=== PATIENT | female | born 1970 | race Two or more races ===

== ENCOUNTER 2021-12-29 09:11 | Emergency (ER) | payer SELFPAY ==
--- NOTE | ~2021-12-29 | XR_ITS ---
EXAMINATION: XR CHEST CLINICAL INFORMATION: Shortness of breath. COMPARISON: None TECHNIQUE: 2 views of the chest were obtained. FINDINGS: No significant abnormality is noted involving the heart, lungs, mediastinum, bony thorax or soft tissues. XR/XR chest 2V IMPRESSION: Unremarkable examination.
[2021-12-29 09:16] VITALS: BP 110/75; PULSE 100; RESP 19; TEMP 36.6; O2SAT 98; BMI 28.2
--- NOTE | 2021-12-29 09:22 | ECG_ITS ---
Test Reason : shortness of breath Blood Pressure : / mmHG Vent. Rate : 095 BPM Atrial Rate : 095 BPM P-R Int : 142 ms QRS Dur : 072 ms QT Int : 352 ms P-R-T Axes : 067 002 004 degrees QTc Int : 442 ms Normal sinus rhythm Nonspecific T wave abnormality Abnormal ECG No previous ECGs available Referred By: Generic ED Physician Electronically Signed By:LUIGI LANCASTER MD
[2021-12-29 10:12] VITALS: BP 119/64; PULSE 78; RESP 18; TEMP 37; O2SAT 100
--- NOTE | 2021-12-29 10:13 | ED_ITS ---
HPI - SOB/Dyspnea General Chief Complaint: General Medical Stated Complaint: difficulty breathing Time Seen by Provider: 12/29/21 10:11 Source: patient and family Mode of arrival: ambulatory Limitations: no limitations History of Present Illness MD elicited complaint: shortness of breath Pertinent past history: asthma Onset (ago): day(s) (yesterday ) Context: other (came from [place] end of November has no albuterol INH) Timing: constant Severity: moderate Exacerbating factors: exertion and coughing Relieving factors: rest Known history of: asthma Associated symptoms: cough and other (chest tightness) Related Data Previous Rx's Medication Instructions Recorded prednisone 20 mg tablet 60 mg PO DAILY 5 Days #15 tab 12/29/21 Allergies Allergy/AdvReac Type Severity Reaction Status Date / Time Sulfa (Sulfonamide Allergy Unknown Unknown Verified 12/29/21 10:25 Antibiotics) tramadol Allergy Unknown Unknown Verified 12/29/21 10:25 Review of Systems Review of Systems: Constitutional : No Fever, No Chills ENT/Mouth : No Hoarseness, No sore throat, No Rhinorrhea Eyes: No Redness, No Discharge, No Vision Changes Cardiovascular : pos Chest Pain, positive SOB, positive Dyspnea on Exertion, No Edema Respiratory : positive Cough, No Sputum, positive Wheezing, Gastrointestinal : No Nausea, No Vomiting, No Diarrhea, No abdominal Pain Genitourinary : No Dysuria, No Hematuria Musculoskeletal : No joint pain, No Myalgias Skin : No rash Neuro : No Weakness, No Numbness, No Headache Psych : No anxiety, depression Heme/Lymph: No Bruising, No Bleeding Endocrine : No Polyuria, No Polydipsia All other systems reviewed and are negative [facility] Past Medical History Attestation statement: The following information was validated with the patient. Medical History (Updated 12/29/21 @ 13:30 by Marisela Henson DO) Asthma Social History Social History (Updated 12/29/21 @ 10:37 by Marisela Henson DO) Patient Tobacco Use Status: Former Tobacco user Use of substances other than those prescribed or required for medical reasons: No Advance Directives: No Advance Directives Information Provided: Yes Physical Exam Vital Signs: Vital Signs: Last Vital Signs Temp 98.6 F 12/29/21 10:12 Pulse 62 12/29/21 13:22 Resp 18 12/29/21 13:22 BP 119/64 12/29/21 10:12 Pulse Ox 100 12/29/21 10:12 BMI result Body Mass Index 28.2 Appearance: Alert. Oriented X3. No acute distress. Eyes: Pupils equal, round and reactive to light. ENT: Pharynx normal. Neck: Normal inspection. Neck supple. CVS: Normal heart rate and rhythm. Pulses normal. Respiratory: No respiratory distress. Breath sounds diminished Abdomen: Soft and nontender. Skin: Skin warm and dry. Normal skin color. Normal skin turgor. Extremities: No lower extremity edema. No calf ttp Neuro: Oriented X 3. No motor deficit. No sensory deficit. Course Course Course Narrative: ddimer under upper limits of normal negative troponin x 2, CXR negative, COVID negative feels better with neb given INH in hand will Rx prednisone and DC home MDM - SOB/Dyspnea MDM Narrative Medical decision making narrative: 51 yo female hx of asthma comes in with c/o dyspnea and chest tightness has no r escue inhalers did just travel end of november from [place] - at this time troponin, EKG, ddimer, albuterol neb, IV steroids and CXR - COVID swab. She has lateral t wave inversions but I have no prior EKGs to compare may need repeat troponin - seems more asthma exacerbation vs PE than ACS at this time. Lab Data Result diagrams: 12/29/21 10:49 12/29/21 10:49 Labs: Lab Results 12/29/21 12/29/21 12/29/21 Range/Units 10:49 10:49 10:49 WBC 6.0 (4.8-10.8) X10*3/uL RBC 4.38 (4.20-5.50) X10*6/uL Hgb 13.1 (12.0-16.0) g/dl Hct 39.1 (37.0-47.0) % MCV 89.3 (80.0-98.0) fL MCH 29.9 (27.0-33.0) pg MCHC 33.5 (31.0-35.0) g/dl RDW 12.9 (11.0-16.0) % Plt Count 238 (160-400) X10*3/uL MPV 10.8 (9.4-12.3) fL Immature Gran % (Auto) 0.2 (0.0-0.4) % Neut % (Auto) 60.0 (45-73) % Lymph % (Auto) 31.8 (20-40) % Hubbard % (Auto) 6.0 (2-11) % Eos % (Auto) 1.3 (0-4) % Baso % (Auto) 0.7 (0-2) % Lymph # (Auto) 1.9 (1.2-4.9) X10*3/uL Hubbard # (Auto) 0.4 (0.1-1.2) X10*3/uL Eos # (Auto) 0.1 (0.0-0.4) X10*3/uL Baso # (Auto) 0.0 (0.0-0.2) X10*3/uL Abs Immat Gran (auto) 0.01 (0.00-0.03) X10*3/uL Absolute Neuts (auto) 3.6 (2.0-8.3) x10*3/uL Absolute Nucleated RBC 0.000 (0.0-0.012) X10*3/uL Nucleated RBC % (auto) 0.0 (0.0-0.2) /100WBC D-Dimer High Sensitivty 207 NG/ML Sodium 143 (135-145) mmol/L Potassium 4.3 (3.3-5.1) mmol/L Chloride 110 H (96-108) mmol/L Carbon Dioxide 23 (22-29) mmol/L Anion Gap 14 (12-20) BUN 15 (9-16) mg/dL Creatinine 0.73 (0.5-1.4) mg/dL Estim Creat Clear Calc 81.7 Estimated GFR > 60 Random Glucose 96 (60-115) mg/dL Calcium 9.8 (8.4-10.2) mg/dL Troponin I High Sens (<3.5-17.0) ng/L B-Natriuretic Peptide (<100) pg/mL COVID-19 ([facility]) (Negative) COVID-19 Clin Com 12/29/21 12/29/21 12/29/21 Range/Units 10:49 10:49 12:53 WBC (4.8-10.8) X10*3/uL RBC (4.20-5.50) X10*6/uL Hgb (12.0-16.0) g/dl Hct (37.0-47.0) % MCV (80.0-98.0) fL MCH (27.0-33.0) pg MCHC (31.0-35.0) g/dl RDW (11.0-16.0) % Plt Count (160-400) X10*3/uL MPV (9.4-12.3) fL Immature Gran % (Auto) (0.0-0.4) % Neut % (Auto) (45-73) % Lymph % (Auto) (20-40) % Hubbard % (Auto) (2-11) % Eos % (Auto) (0-4) % Baso % (Auto) (0-2) % Lymph # (Auto) (1.2-4.9) X10*3/uL Hubbard # (Auto) (0.1-1.2) X10*3/uL Eos # (Auto) (0.0-0.4) X10*3/uL Baso # (Auto) (0.0-0.2) X10*3/uL Abs Immat Gran (auto) (0.00-0.03) X10*3/uL Absolute Neuts (auto) (2.0-8.3) x10*3/uL Absolute Nucleated RBC (0.0-0.012) X10*3/uL Nucleated RBC % (auto) (0.0-0.2) /100WBC D-Dimer High Sensitivty NG/ML Sodium (135-145) mmol/L Potassium (3.3-5.1) mmol/L Chloride (96-108) mmol/L Carbon Dioxide (22-29) mmol/L Anion Gap (12-20) BUN (9-16) mg/dL Creatinine (0.5-1.4) mg/dL Estim Creat Clear Calc Estimated GFR Random Glucose (60-115) mg/dL Calcium (8.4-10.2) mg/dL Troponin I High Sens < 3.5 < 3.5 (<3.5-17.0) ng/L B-Natriuretic Peptide < 10 (<100) pg/mL COVID-19 ([facility]) Negative (Negative) COVID-19 Clin Com See Note ECG Data Attestation: I personally reviewed and interpreted this ECG as follows: ECG interpretation date: 12/29/21 ECG interpretation time: 10:13 Interpretation: Rate:95 Rhythm: NSR [place]: left Normal P waves. Normal AIRAM. Normal QRS complex. ST T wave : no NEHA, inverted in V4-V6 qTC: normal prior studies: none The study has been interpreted contemporaneously by me. . Discharge Plan Discharge Clinical Impression: Nonspecific ST-T wave electrocardiographic changes Asthma Qualifiers: Asthma severity: mild Asthma persistence: persistent Asthma complication type: with acute exacerbation Qualified Code(s): J45.31 - Mild persistent asthma with (acute) exacerbation Patient Disposition: Home, Self-Care Instructions: Asthma (ED) Additional Instructions: return to ED for any worsening symptoms or concerns puede usar el inhalador 2 inhalaciones cada 2 a 4 horas seg?n sea necesario para la disnea Prescriptions: New prednisone 20 mg tablet 60 mg PO DAILY 5 Days Qty: 15 0RF Print Language: Icelandic
--- NOTE | 2021-12-29 10:52 | PC.NURSE ---
pt alert and oriented, skin appropriate for ethnicity, respirations even and unlabored, ls clear sating 100% on room air, pt also has a horse voice-reports loosing her voice few days ago, feeling sob and chest tightness ns on the monitor and vs stable
[2021-12-29 10:55] LABS: MANUAL DIFF FLAG NO
[2021-12-29 11:05] LABS: Basophils Percent Auto 0.7 % (0-2); Eosinophils Absolute Auto 0.1 X10*3/uL (0.0-0.4); Eosinophils Percent Auto 1.3 % (0-4); Hematocrit 39.1 % (37.0-47.0); Hemoglobin 13.1 g/dl (12.0-16.0); Imm Gran Abs Auto 0.01 X10*3/uL (0.00-0.03); Imm Gran Pct Auto 0.2 % (0.0-0.4); Lymphocytes Absolute Auto 1.9 X10*3/uL (1.2-4.9); Lymphocytes Percent Auto 31.8 % (20-40); Mean Corpuscular HGB Conc 33.5 g/dl (31.0-35.0); Mean Corpuscular Hemoglobin 29.9 pg (27.0-33.0); Mean Corpuscular Volume 89.3 fL (80.0-98.0); Mean Platelet Volume 10.8 fL (9.4-12.3); Monocytes Absolute Auto 0.4 X10*3/uL (0.1-1.2); Neutrophils Absolute Auto 3.6 x10*3/uL (2.0-8.3); Platelet Count 238 X10*3/uL (160-400); Red Blood Count 4.38 X10*6/uL (4.20-5.50); Red Cell Distribution Width 12.9 % (11.0-16.0)
[2021-12-29] MEDS: Albuterol Sulfate (0.083%) 2.5 MG/3 ML VIAL.NEB 5 MG INHALE (11:06)
[2021-12-29 11:07] VITALS: PULSE 59; RESP 18; O2SAT 98
[2021-12-29 11:13] LABS: Anion Gap 14 (12-20); Blood Urea Nitrogen 15 mg/dL (9-16); Calcium 9.8 mg/dL (8.4-10.2); Carbon Dioxide 23 mmol/L (22-29); Chloride 110 mmol/L (96-108); Creatinine Clr Calc Pharmacy 81.7; Estimated Glomerular Filt Rate > 60; Glucose Random 96 mg/dL (60-115); Potassium 4.3 mmol/L (3.3-5.1); Sodium 143 mmol/L (135-145)
[2021-12-29 11:14] LABS: COVID-19 Test Negative (Negative); IDNOW Serial# 16C4AD1C
[2021-12-29 11:18] LABS: B Type Natriuretic Peptide < 10 pg/mL (<100); Troponin-I High Sensitivity < 3.5 ng/L (<3.5-17.0)
[2021-12-29] MEDS: methylPREDNISolone Sod Succ 125 MG/2 ML VIAL IVPUSH (11:24)
[2021-12-29 11:28] LABS: D Dimer High Sensitivity 207 NG/ML
[2021-12-29 13:22] VITALS: PULSE 62; RESP 18; O2SAT 97
[2021-12-29] MEDS: Albuterol Sulfate 90 MCG 8 GM INHALER 2 PUFF INHALE (13:22)
[2021-12-29 13:23] LABS: Troponin-I High Sensitivity < 3.5 ng/L (<3.5-17.0)
[2021-12-29 14:03] VITALS: BP 143/79; PULSE 99; RESP 24; O2SAT 100
== END 2021-12-29 14:04 | disposition home or self-care (01) ==
PROVIDERS: Emergency Provider Emergency Medicine
DX: J45.31 Mild persistent asthma with (acute) exacerbation (principal); R94.31 Abnormal electrocardiogram [ECG] [EKG]; R06.02 Shortness of breath; Z20.822 Contact with and (suspected) exposure to COVID-19
CPT/HCPCS: 36415; 71046; 80048; 83880; 84484; 85025; 85379; 87635; 93005; 94640; 96374; 99284; J2930